=== PATIENT | male | born 1990 | race Caucasian/White ===

== ENCOUNTER 2021-02-13 20:02 | Emergency (ER) | payer OTHER, SELFPAY ==
[2021-02-13] VITALS (9 sets, daily range): BP systolic 126–149; BP diastolic 72–89; PULSE 70–82; RESP 15–23; TEMP 36.7; O2SAT 96–100; BMI 29.4
--- NOTE | 2021-02-13 20:17 | DI.RAD.S_ITS ---
PROCEDURE: XR CHEST 1V INDICATIONS: chest pain TECHNIQUE: One view of the chest was acquired. COMPARISON: None. FINDINGS: Surgical changes and devices: None. Lungs and pleura: Lungs are clear. No pleural effusions or pneumothorax. Mediastinum: Mediastinal contours appear normal. Heart size is normal. Bones and chest wall: No suspicious bony lesions. Overlying soft tissues appear unremarkable. IMPRESSION: No acute cardiopulmonary disease process. Dictated by: Beth Adkins MD, PhD on 02/13/2021 at 20:58 Approved by: Beth Adkins MD, PhD on 02/13/2021 at 20:58
[2021-02-13 20:34] LABS: Add Manual Diff / Slide Review NO; Basophils Absolute Auto 0 /uL (0-100); Basophils Percent Auto 0.2 % (0-2); Eosinophils Absolute Auto 0 /uL (0-450); Hematocrit 42.3 % (41-53); Hemoglobin 14.5 g/dL (13.5-17.5); Lymphocytes Absolute Auto 2600 /uL (1100-4500); Lymphocytes Percent Auto 22.8 % (25-40); Mean Corpuscular HGB Conc 34.3 % (30-36); Mean Corpuscular Hemoglobin 29.2 PG (26-34); Monocytes Absolute Auto 500 /uL (0-900); Monocytes Percent Auto 4.3 % (3-14); Neutrophils Absolute Auto 8300 /uL (1500-7000); Neutrophils Percent Auto 72.7 % (50-75); Platelet Count 277 X10^3/uL (150-400); Red Blood Cell Count 4.98 X10^6/uL (4.5-5.9); Red Cell Distribution Width 12.4 % (11.6-14.8); White Blood Cell Count 11.5 X10^3/uL (4.5-11.0)
[2021-02-13 20:42] LABS: Alanine Aminotransferase 42 IU/L (<50); Albumin 5.3 g/dL (3.5-5.0); Albumin Globulin Ratio 1.6 (1.0-2.8); Alkaline Phosphatase 82 U/L (38-126); Aspartate Aminotransferase 37 IU/L (17-59); BUN Creatinine Ratio 11.2 (6-22); Bilirubin Total 0.9 mg/dL (0.2-1.3); Blood Urea Nitrogen 11 mg/dL (9-20); Calcium 10.2 mg/dL (8.4-10.2); Carbon Dioxide 25 mmol/L (22-32); Chloride 103 mmol/L (98-107); Creatine Kinase 298 U/L (55-170); Estimated Glomerular Filt Rate > 60.0 mL/min (>60); Globulin 3.3 g/dL (1.7-4.1); Glucose 115 mg/dL (70-100); HEMOLYSIS < 15 (0-50); Lipase 79 U/L (23-300); Potassium 3.6 mmol/L (3.4-5.1); Sodium 141 mmol/L (137-145); Total Protein 8.6 g/dL (6.3-8.2)
[2021-02-13 20:52] LABS: COVID19 -Nasal RAPID Negative (Negative)
[2021-02-13 20:54] LABS: Troponin I < 0.012 ng/mL (0.01-0.034)
[2021-02-13 21:15] LABS: CKMB % Relative Index 0.5 % (1.5-5.0); Creatine Kinase MB 1.38 ng/mL (<2.37)
--- NOTE | 2021-02-13 23:23 | ED.GENADULT ---
HPI - General Adult General Chief complaint: Dizziness Stated complaint: chest tightness, feels faint Time Seen by Provider: 02/13/21 23:22 Source: patient Mode of arrival: Ambulatory History of Present Illness HPI narrative: 30-year-old gentleman with no significant medical history presents with 3 weeks of worsening symptoms including fatigue, dizziness, intermittent chest tightness and dyspnea. He was feeling well about 5:00 this evening and then began having worsening symptoms and by 730 tonight he had severe dizziness, chest tightness felt like he was going to pass out. He denies fevers cough he does occasionally have palpitations with these episodes. No vomiting, abdominal pain, diarrhea. Aside from the fatigue no focal neurologic findings. He notes that he is not particularly under significant stress aside from being a father of a 2-year-old. He notes that he gets 6-8 hours of sleep most nights. No new medications does not use recreational drugs and has had multiple negative COVID tests over this 3 week period. Review of Systems Review of Systems Narrative: Remainder of complete review of systems is otherwise unremarkable except for that included in the HPI. Patient History Social History Smoking Status: Former smoker Smoking Status: Former smoker Substance Use Type: does not use Exam Narrative Exam Narrative: General: Healthy appearing, in no acute distress. Able to give a complete and coherent history. Well-nourished well-developed HEENT: Moist mucous membranes, normal sclera with reactive pupils, Respiratory: Lungs are clear to auscultation, no wheezing no rales no rhonchi. Full and symmetrical air movement Cardiac: Regular rate and rhythm no murmurs no bruits Abdomen: Soft, nontender, good bowel tones, no flank pain Skin: Warm and dry, no rashes Neurologic: Grossly neurologically intact with no obvious asymmetries or abnormalities Extremities: No trauma, well perfused Psych: Cooperative, appropriate insight and affect Initial Vital Signs Initial Vital Signs: Vital Signs Temperature 98.0 F 02/13/21 20:02 Pulse Rate 82 02/13/21 20:02 Respiratory Rate 16 02/13/21 20:02 Blood Pressure 149/89 H 02/13/21 20:02 Pulse Oximetry 98 02/13/21 20:02 Course Orders Ordered: ED Orders 02/13/21 20:10 COVID19 -Nasal swab/Pre-Proc Stat 02/13/21 20:17 XR chest 1V Stat EKG-12 Lead Stat 02/13/21 20:19 Complete Blood Count AUTO DIFF Stat Comprehensive Metabolic Panel Stat Lipase Stat Troponin & CK Cardiac Panel Stat Vital Signs Vital signs: Vital Signs - 8 hr 02/13/21 20:02 02/13/21 20:09 02/13/21 20:30 Temperature 98.0 F Pulse Rate 82 79 75 Respiratory Rate 16 23 Blood Pressure 149/89 H 149/89 H 132/72 Pulse Oximetry 98 97 96 02/13/21 21:00 02/13/21 21:30 02/13/21 22:00 Temperature Pulse Rate 74 71 73 Respiratory Rate 20 22 19 Blood Pressure 126/74 130/75 138/73 Pulse Oximetry 98 100 98 02/13/21 22:30 02/13/21 23:00 Temperature Pulse Rate 75 77 Respiratory Rate 22 22 Blood Pressure 140/78 142/77 H Pulse Oximetry 98 98 Medical Decision Making Lab Data Result diagrams: 02/13/21 20:19 02/13/21 20:19 Labs: Lab Results 02/13/21 02/13/21 02/13/21 Range/Units 20:10 20:19 20:19 WBC 11.5 H (4.5-11.0) X10^3/uL RBC 4.98 (4.5-5.9) X10^6/uL Hgb 14.5 (13.5-17.5) g/dL Hct 42.3 (41-53) % MCV 85.0 (80-100) fL MCH 29.2 (26-34) PG MCHC 34.3 (30-36) % RDW 12.4 (11.6-14.8) % Plt Count 277 (150-400) X10^3/uL Neut % (Auto) 72.7 (50-75) % Lymph % (Auto) 22.8 L (25-40) % Hodgeman % (Auto) 4.3 (3-14) % Eos % (Auto) 0.0 L (2-4) % Baso % (Auto) 0.2 (0-2) % Neut # (Auto) 8300 H (8921-0496) /uL Lymph # (Auto) 2600 (1287-0421) /uL Hodgeman # (Auto) 500 (0-900) /uL Eos # (Auto) 0 (0-450) /uL Baso # (Auto) 0 (0-100) /uL Sodium 141 (137-145) mmol/L Potassium 3.6 (3.4-5.1) mmol/L Chloride 103 (98-107) mmol/L Carbon Dioxide 25 (22-32) mmol/L BUN 11 (9-20) mg/dL Creatinine 0.98 (0.66-1.25) mg/dL Estimated GFR > 60.0 (>60) mL/min BUN/Creatinine Ratio 11.2 (6-22) Glucose 115 H (70-100) mg/dL Calcium 10.2 (8.4-10.2) mg/dL Total Bilirubin 0.9 (0.2-1.3) mg/dL AST 37 (17-59) IU/L ALT 42 (<50) IU/L Alkaline Phosphatase 82 (38-126) U/L Total Creatine Kinase 298 H (55-170) U/L CK-MB (CK-2) 1.38 (<2.37) ng/mL CK-MB (CK-2) Rel Index 0.5 L (1.5-5.0) % Troponin I < 0.012 (0.01-0.034) ng/mL Total Protein 8.6 H (6.3-8.2) g/dL Albumin 5.3 H (3.5-5.0) g/dL Globulin 3.3 (1.7-4.1) g/dL Albumin/Globulin Ratio 1.6 (1.0-2.8) Lipase 79 (23-300) U/L SARS-CoV-2 (PCR) Negative (Negative) Imaging Data Chest x-ray: Radiologist's Impression: FINDINGS:? ? Surgical changes and devices:? None.? ? Lungs and pleura:? Lungs are clear.? No pleural effusions or pneumothorax.? ? Mediastinum:? Mediastinal contours appear normal.? Heart size is normal.? ? Bones and chest wall:? No suspicious bony lesions.? Overlying soft tissues appear unremarkable.? ? IMPRESSION:? No acute cardiopulmonary disease process. ? ? Dictated by: Beth Adkins MD, PhD on 02/13/2021 at 20:58 ? ? ECG Data Interpretation: Sinus rhythm at a rate of 77 Normal intervals, normal axis No acute ischemic changes MDM Narrative Medical decision making narrative: 30-year-old gentleman with recurrent episodes of fatigue dizziness chest tightness over the last 3 weeks. Tonight seem to be the worst. Workup today was very reassuring. Normal chest x-ray and lab work no evidence of acute coronary syndrome, tachyarrhythmias, cardiomyopathy or enlarged cardiac silhouette, pneumonia or other infectious etiology. Reassurance is given. We did briefly look at stress however that seems less likely. Given the fact that he has been having such fatigue over the 3 weeks I think that panic attack is a less likely diagnosis as well. At this point he has no life-threatening issue identified and the reason for hospitalization. He is safe for home discharge. I encouraged him to establish care with a primary care physician to continue outpatient workup for these frustrating symptoms. Discharge Plan Departure Patient Disposition: Home Clinical Impression: Dizziness, Fatigue, Chest pain Instructions: DI for Atypical Chest Pain, DI for Fatigue Activity Restrictions/Additional Instructions: Thank you for coming in today Fortunately I did not find any life-threatening explanations for your symptoms today. Specifically I found no evidence of heart attack, life-threatening heart rhythm, enlarged heart, overall infection or significant electrolyte abnormalities. At this time I think that is safe for you to go home. If you have worsening symptoms please feel free to return to the ER
[2021-02-14] VITALS: BP 139/68; PULSE 71; RESP 18; O2SAT 99
[2021-02-14 00:30] VITALS: BP 143/80; PULSE 66; RESP 16; O2SAT 95
[2021-02-14 01:00] VITALS: PULSE 70; RESP 21; O2SAT 98
== END 2021-02-14 01:09 | disposition home or self-care (01) ==
PROVIDERS: Emergency Provider Emergency Medicine
DX: R07.9 Chest pain, unspecified (principal); R42 Dizziness and giddiness; R53.83 Other fatigue; R06.00 Dyspnea, unspecified; Z20.822 Contact with and (suspected) exposure to COVID-19
CPT/HCPCS: 36415; 71045; 80053; 82550; 82553; 83690; 84484; 85025; 87635; 93005; 93010; 99283; 99284; C9803

== ENCOUNTER 2022-05-04 15:23 | Emergency (ER) | payer OTHER, SELFPAY ==
[2022-05-04 15:26] VITALS: BP 157/63; PULSE 94; RESP 16; TEMP 36.3; O2SAT 96; BMI 30.3
--- NOTE | 2022-05-04 16:22 | ED_ITS ---
HPI - Allergic Reaction <YOVANY Louie - Last Filed: 05/04/22 17:31> General Chief complaint: Allergic Reaction Stated complaint: allergic reaction, itching on feet/hands Time Seen by Provider: 05/04/22 16:06 Mode of arrival: Ambulatory History of Present Illness HPI narrative: This is a 31-year-old male without significant medical history, denies history of allergies who presents emergency department complaining of pruritus of bilateral hands and feet this started today. Patient states that it is his day off and he was not wearing his work boots like he normally does. Denies any history of this in the past. States that his daughter has an upper respiratory viral infection and he has also had cough and congestion for the last 2 weeks. States that his symptoms over the last 3 days are new and he has rhinorrhea, a wet cough, denies wheezing or history of asthma, denies lesions on his hands or his feet, denies any new soaps, contaminant or new environmental exposure. He is wearing cotton socks in his shoes, states the lateral plantar aspect of bilateral feet are itchy, without blister, without pain or bumps. Denies fever, denies any rash on his face, arms legs and states that he took 10 mg of Zyrtec earlier today and it did help. Related Data Previous Rx's Medication Instructions Recorded cetirizine 10 mg capsule 30 mg PO QPM 1 week #60 caps 05/04/22 famotidine 20 mg tablet (Pepcid) 20 mg PO DAILY #10 tabs 05/04/22 hydroxyzine HCl 25 mg tablet 25 mg PO TID PRN itching #20 tabs 05/04/22 Allergies Allergy/AdvReac Type Severity Reaction Status Date / Time house dust Allergy Verified 05/04/22 15:33 Review of Systems <YOVANY Louie - Last Filed: 05/04/22 17:31> Review of Systems ROS Unobtainable: All systems reviewed & are unremarkable except as noted in HPI and below Patient History <YOVANY Louie - Last Filed: 05/04/22 17:31> Social History Smoking Status: Former smoker Smoking Status: Former smoker alcohol intake frequency: a few times a month Substance Use Type: does not use Exam <YOVANY Louie - Last Filed: 05/04/22 17:31> Narrative Exam Narrative: Reviewed vitals signs and nursing notes. General: cooperative, comfortable, in no acute distress, well groomed, afebrile HEENT: symmetrical facial expressions, moist mucous membranes, congestion, EOMI, without conjunctival injection bilaterally, airway is widely patent Cardiovascular: regular rate and rhythm, without tachycardia, no peripheral edema, warm extremities Respiratory: normal effort, able to speak in complete sentences, without wheezing, stridor, or abnormal breath sounds. No retractions or tachypnea. GI: abdomen soft, nontender to palpation, nondistended, without masses, rebound tenderness or exquisite tenderness with exam. MSK: moves all extremities, neurovascularly intact, no weakness, normal tone Skin: brisk capillary refill, without pallor or erythema Neuro: normal speech and cognition, A&O x3, ambulatory, clear speech Psych: mental status is grossly normal, congruent mood, normal affect, pleasant and cooperative Initial Vital Signs Initial Vital Signs: Vital Signs Temperature 97.3 F L 05/04/22 15:26 Pulse Rate 94 H 05/04/22 15:26 Respiratory Rate 16 05/04/22 15:26 Blood Pressure 157/63 H 05/04/22 15:26 Pulse Oximetry 96 05/04/22 15:26 Oxygen Delivery Method 05/04/22 15:26 <Va Whitney MD - Last Filed: 05/04/22 18:58> Initial Vital Signs Initial Vital Signs: Vital Signs Temperature 97.3 F L 05/04/22 15:26 Pulse Rate 94 H 05/04/22 15:26 Respiratory Rate 16 05/04/22 15:26 Blood Pressure 157/63 H 05/04/22 15:26 Pulse Oximetry 96 05/04/22 15:26 Oxygen Delivery Method 05/04/22 15:26 Course <YOVANY Louie - Last Filed: 05/04/22 17:31> Orders Ordered: ED Orders 05/04/22 16:30 Covid-19 + FLU A/B + RSV - PCR Stat Discontinued Medications Diphenhydramine HCl (Diphenhydramine 25 Mg Tablet) 25 mg PO NOW ONE Stop: 05/04/22 16:21 Last Admin: 05/04/22 16:28 Dose: 25 mg Documented By: SETEFANY Loratadine (Loratadine 10 Mg Tablet) 20 mg PO NOW ONE Stop: 05/04/22 16:21 Last Admin: 05/04/22 16:28 Dose: 20 mg Documented By: ESTEFANY Vital Signs Vital signs: Vital Signs - 8 hr 05/04/22 15:26 05/04/22 16:36 Temperature 97.3 F L Pulse Rate 94 H 92 H Respiratory Rate 16 Blood Pressure 157/63 H 148/67 H Pulse Oximetry 96 97 Oxygen Delivery Method Room Air Room Air <Va Whitney MD - Last Filed: 05/04/22 18:58> Orders Ordered: ED Orders 05/04/22 16:30 Covid-19 + FLU A/B + RSV - PCR Stat Discontinued Medications Diphenhydramine HCl (Diphenhydramine 25 Mg Tablet) 25 mg PO NOW ONE Stop: 05/04/22 16:21 Last Admin: 05/04/22 16:28 Dose: 25 mg Documented By: ESTEFANY Loratadine (Loratadine 10 Mg Tablet) 20 mg PO NOW ONE Stop: 05/04/22 16:21 Last Admin: 05/04/22 16:28 Dose: 20 mg Documented By: ESTEFANY Vital Signs Vital signs: Vital Signs - 8 hr 05/04/22 15:26 05/04/22 16:36 Temperature 97.3 F L Pulse Rate 94 H 92 H Respiratory Rate 16 Blood Pressure 157/63 H 148/67 H Pulse Oximetry 96 97 Oxygen Delivery Method Room Air Room Air MDM - Allergic Reaction <YOVANY Louie - Last Filed: 05/04/22 17:31> Lab Data Labs: Lab Results 05/04/22 Range/Units 16:30 SARS-CoV-2 (PCR) Negative (Negative) Influenza A (RT-PCR) Flu a negative (NEGATIVE) Influenza B (RT-PCR) Flu b negative (NEGATIVE) RSV (PCR) Negative (Negative) MDM Narrative Medical decision making narrative: This is a 31-year-old male without significant medical history, denies history of allergies who presents emergency department complaining of pruritus of bilateral hands and feet this started today. Differential diagnoses include, but are not limited to: Contact dermatitis, urticaria, allergic reaction, viral exanthem, including 5th disease, atopic dermatitis, Coxsackie virus, hand-nunu this is most likely urticarial t-mouth syndrome, athlete's foot, dyshidrotic eczema. Course of care: My assessment, dorsum of patient's hands appear to have urticarial lesions, there are no papules, blisters, mild erythema secondary to scratching, there are no vesicles, purpura central clearing or other associated symptoms including fever, headache, nausea, diarrhea, or facial rash,. Ordered Benadryl, loratadine. Patient's symptoms improved over duration of stay with above-stated therapies. Presentation not consistent with acute anaphylaxis (lack of pulmonary, dermatologic, cardiovascular or GI symptoms, lack of hypotension or exposure to known allergen), angioedema, serum sickness (no recent drug exposure, lacks fevers, arthralgias). No evidence of airway compromise or shock at this time. Plan at this time is to treat symptomatically, instruct to follow up with PCP or derm PRN. Pertinent negatives include no blisters, no cough, no sore throat, no chills, no diarrhea, no fears, in no joint aches. Pt denies any household contacts with similar rash, no new medications, and no new personal care products or soaps, fragrances. This is most likely urticaria related to viral syndrome, will treat with cetirizine 30 nightly for 1 week, gave prescription of hydroxyzine for as needed daytime use, famotidine daily, encouraged PCP follow-up or dermatology follow-up this week. He does not have any red flag symptoms today, appears well hydrated. MIPS: This encounter doesn't have any diagnosis associated with MIPS criteria. Social determinants of health that may impact treatment or disposition: none Vital Signs: I, the ED provider, reviewed the patient?s vital signs, past medical records and encounters if available, and nursing notes. I have spoken with the patient/family and discussed today?s findings whom verbalize understanding. Counseling was provided regarding the diagnosis and prognosis, and specific details were provided for the plan of care. Questions are addressed and there is agreement with the plan and for follow-up. Patient is appropriate for outpatient management. Portions of this chart have been created with [email or web address] voice recognition software. Occasional wrong word or sound alike substitutions may have occurred due to the inherent limitations of this software. Sandy Bush ARNP, personally performed the services described in the documentation, and it accurately records my words and actions. I collaborated with the ED attending physician for SAHRA level 2, 3, and some level 4s as needed Electronically signed by: YOVANY Pina <Va Whitney MD - Last Filed: 05/04/22 18:58> Lab Data Labs: Lab Results 05/04/22 Range/Units 16:30 SARS-CoV-2 (PCR) Negative (Negative) Influenza A (RT-PCR) Flu a negative (NEGATIVE) Influenza B (RT-PCR) Flu b negative (NEGATIVE) RSV (PCR) Negative (Negative) Discharge Plan Departure Patient Disposition: Home Clinical Impression: Urticaria Upper respiratory infection Qualifiers: URI type: unspecified viral URI Qualified Code(s): J06.9 - Acute upper respiratory infection, unspecified Instructions: DI for Viral Upper Respiratory Infection -- Adult, DI for Hives Activity Restrictions/Additional Instructions: *You have been diagnosed with rash of your hands and your feet which appear most like hives. This could be secondary to environmental exposure but is most likely related to the viral illness that your daughter has that you have been ill with over the last few days. We will call you if the nasal swab is positive for COVID, RSV or influenza. Stay hydrated, treat your congestion and itching with cetirizine 30 mg nightly, hydroxyzine as needed for itching during the day, 25 mg of Benadryl nightly. Please take Pepcid or something to prevent stomach ulcer, follow-up with your primary care provider and or return to the emergency department if your shortness of breath gets worse, if your hives gets worse, or if you develop wheezing, swelling or rash of your face. *What to do: *Please continue to take your regular medications as directed. [ x] New medication prescriptions sent to your pharmacy: [[facility] [place] ] [ ] New medication written as a paper prescription [ ] No new medications given *Please follow up with your primary care provider in 2-3 days, call for an appointment. Let them know you were seen in the Emergency Department and that we asked that you be seen for follow-up. We will electronically transmit a record of today's note if your PCP is in our system *If you do not have a primary care provider please contact [phone] to establish care with one of the [facility] primary care providers. *Return to Emergency Department if you should have any new, worsening, or concerning symptoms, such as [fever greater than 101F, chills, worsening pain, persistent vomiting or other bothersome symptoms]. Prescriptions: New cetirizine 10 mg capsule 30 mg PO QPM 7 Days Qty: 60 0RF Rx Instructions: Please take for 1-2 weeks as needed for hives and congestion hydroxyzine HCl 25 mg tablet 25 mg PO TID PRN (Reason: itching) Qty: 20 0RF famotidine [Pepcid] 20 mg tablet 20 mg PO DAILY Qty: 10 0RF Referrals: Thao Patrick FNP-C [Non-Staff] - Stand Alone Forms: Patient Portal/API <Va Whitney MD - Last Filed: 05/04/22 18:58> Cosign ED Attending Cosignature Attestation: I was immediately available in the department for consultation throughout this patient's visit. I agree with documentation as above. Va Whitney MD
[2022-05-04] MEDS: diphenhydrAMINE 25 MG TABLET PO (16:28)
[2022-05-04] MEDS: LORATADINE 10 MG TABLET 20 MG PO (16:28)
[2022-05-04 16:36] VITALS: BP 148/67; PULSE 92; O2SAT 97
[2022-05-04 17:13] LABS: Influenza A - CEPHEID Flu A NEGATIVE (NEGATIVE); Influenza B - CEPHEID Flu B NEGATIVE (NEGATIVE); Respiratory Syncytial Virus Negative (Negative)
[2022-05-04 17:16] LABS: COVID-19 CEPHEID 4-PLEX PCR Negative (Negative)
== END 2022-05-04 16:36 | disposition home or self-care (01) ==
PROVIDERS: Emergency Provider Nurse Practitioner Critical Care Medicine
DX: J06.9 Acute upper respiratory infection, unspecified (principal); L50.9 Urticaria, unspecified; Z20.822 Contact with and (suspected) exposure to COVID-19
CPT/HCPCS: 0241U; 99283

== ENCOUNTER 2023-12-03 10:04 | Emergency (ER) | payer OTHER, SELFPAY ==
[2023-12-03 10:14] VITALS: BP 142/83; PULSE 88; RESP 18; TEMP 36.6; O2SAT 99; BMI 29.7
--- NOTE | 2023-12-03 10:18 | DI.RAD.S_ITS ---
PROCEDURE: XR FOOT RT MIN 3V INDICATIONS: Pain after stompping a pumpkin bucket TECHNIQUE: 3 views of the foot were acquired. COMPARISON: None. FINDINGS: Bones: No fractures or dislocations. No suspicious bony lesions. Soft tissues: No tibiotalar joint effusion. Achilles tendon appears normal. IMPRESSION: No acute bony abnormality. Dictated by: August Neri M.D. on 12/03/2023 at 10:36 Approved by: August Neri M.D. on 12/03/2023 at 10:37
--- NOTE | 2023-12-03 10:40 | ED.LOWEXIN ---
HPI - Extremity Injury (Lower) General Chief Complaint: Extremity Injury, Lower Stated Complaint: Might have broken right foot Time Seen by Provider: 12/03/23 10:40 Source: patient Mode of arrival: Ambulatory History of Present Illness HPI Narrative: Patient is a 33-year-old male here for evaluation of a right foot injury. He states last evening he stepped on a plastic bucket. His foot went through the bucket and he hit a cement floor fairly hard. Has been ambulatory but has quite a bit of discomfort in the heel of his right foot. No other injuries from the event. No breaks in the skin. Related Data Previous Rx's Medication Instructions Recorded famotidine 20 mg tablet (Pepcid) 20 mg PO DAILY #10 tabs 05/04/22 hydroxyzine HCl 25 mg tablet 25 mg PO TID PRN itching #20 tabs 05/04/22 Allergies Allergy/AdvReac Type Severity Reaction Status Date / Time house dust Allergy Verified 05/04/22 15:33 Review of Systems Constitutional Constitutional: Reports system reviewed and no additional complaints, except as documented Musculoskeletal Musculoskeletal: Reports system reviewed and no additional complaints, except as documented Integumentary/Breasts Skin/Breast: Reports system reviewed and no additional complaints, except as documented Patient History Social History Smoking Status: Former smoker Smoking Status: Former smoker alcohol intake frequency: a few times a week Substance Use Type: does not use Exam Initial Vital Signs Initial Vital Signs: Vital Signs Temperature 97.9 F 12/03/23 10:14 Pulse Rate 88 12/03/23 10:14 Respiratory Rate 18 12/03/23 10:14 Blood Pressure 142/83 H 12/03/23 10:14 Pulse Oximetry 99 12/03/23 10:14 Oxygen Delivery Method Room Air 12/03/23 10:14 Cardio Pulses: dorsalis pedis present on the left Skin General: no rashes or lesions noted Neuro Sensory Exam: no sensory deficits noted Extrem Other: Tenderness along the right heel on the plantar aspect of the foot. The rest of his ankle exam is unremarkable. No proximal fibula tenderness. No midfoot tenderness. Course Orders Ordered: ED Orders 12/03/23 10:18 XR foot RT min 3V Stat Vital Signs Vital signs: Vital Signs - 8 hr 12/03/23 10:14 Temperature 97.9 F Pulse Rate 88 Respiratory Rate 18 Blood Pressure 142/83 H Pulse Oximetry 99 Oxygen Delivery Method Room Air MDM - Extremity Injury (Lower) Imaging Data Extremity x-ray #1: Radiologist's Impression: PROCEDURE: XR FOOT RT MIN 3V INDICATIONS: Pain after stompping a pumpkin bucket TECHNIQUE: 3 views of the foot were acquired. COMPARISON: None. FINDINGS: Bones: No fractures or dislocations. No suspicious bony lesions. Soft tissues: No tibiotalar joint effusion. Achilles tendon appears normal. IMPRESSION: No acute bony abnormality. Discharge Plan Departure Patient Disposition: Home Clinical Impression: Contusion of right foot or heel Instructions: How To Perform RICE (Rest, Ice, Compress, Elevate) Activity Restrictions/Additional Instructions: Number no fractures noted on the x-rays. You can walk on your right foot as tolerated. I suspect that your symptoms will improve in the next 7-10 days. Return to the emergency department for new symptoms. Prescriptions: No Action hydroxyzine HCl 25 mg tablet 25 mg PO TID PRN (Reason: itching) Qty: 20 0RF famotidine [Pepcid] 20 mg tablet 20 mg PO DAILY Qty: 10 0RF Referrals: Miscellaneous,Doctor, MD [Primary Care Provider] - Stand Alone Forms: Patient Portal/API
== END 2023-12-03 11:15 | disposition home or self-care (01) ==
PROVIDERS: Emergency Provider Emergency Medicine
DX: S90.31XA Contusion of right foot, initial encounter (principal); X58.XXXA Exposure to other specified factors, initial encounter
CPT/HCPCS: 73630; 99281; 99283